=== PATIENT | female | born 1945 ===

== ENCOUNTER → 2017-06-09 12:00 | Outpatient (CLI) | payer MEDICARE ==
[2017-06-09 13:05] LABS: INR 5.22 (0.85-1.17); PROTIME 48.9 SECONDS (11.6-15.0)
== END | disposition home or self-care (01) ==
LOC: D.ER 12:00
PROVIDERS: Family Medicine
DX: Z51.81 Encounter for therapeutic drug level monitoring (principal); Z79.01 Long term (current) use of anticoagulants

== ENCOUNTER → 2017-07-01 15:38 | Outpatient (CLI) | payer MEDICARE ==
[2017-07-01 20:26] LABS: INR 1.42 (0.85-1.17); PROTIME 17.3 SECONDS (11.6-15.0)
== END | disposition home or self-care (01) ==
LOC: D.LABREF 15:38
PROVIDERS: Family Medicine
DX: J44.9 Chronic obstructive pulmonary disease, unspecified (principal); Z79.01 Long term (current) use of anticoagulants